=== PATIENT | male | born 1990 | race Caucasian/White ===

== ENCOUNTER 2021-04-11 12:28 | Emergency (ER) | payer OTHER ==
[2021-04-11 12:54] VITALS: BP 126/82; PULSE 102; TEMP 97; BMI 32.5
[2021-04-11] MEDS ORDERED: IBUPROFEN 600 MG TABLET (FP) PO ONE ×2 (13:47→14:52)
== END 2021-04-11 15:05 | disposition home or self-care (01) ==
LOC: JERFT 12:28
DX: M25.561 Pain in right knee (principal)
CPT/HCPCS: 73562-TC-RT-FY; 99283-25